=== PATIENT | male | born 1995 | race Caucasian/White ===

== ENCOUNTER 2018-05-25 07:29 | Emergency (ER) | payer MEDICAID ==
[~2018-05-25] VITALS: Ht 172.7 cm; Wt 59.0 kg
[2018-05-25 07:37] VITALS: BP 150/99
== END 2018-05-25 08:50 | disposition left against medical advice (07) ==
LOC: ER 07:29
DX: G93.40 Encephalopathy, unspecified (principal)
CPT/HCPCS: 99283